=== PATIENT | female | born 2000 | race Caucasian/White ===

== ENCOUNTER 2022-01-25 15:23 | Emergency (ER) | payer OTHER, SELFPAY ==
[2022-01-25 15:24] VITALS: BP 124/77; PULSE 66; RESP 15; TEMP 36.2; O2SAT 95; BMI 24.4
[2022-01-25 15:28] VITALS: BP 124/77; PULSE 66; RESP 15; TEMP 36.2; O2SAT 95
[2022-01-25 15:50] LABS: Hematocrit 38.8 % (37-47); Hemoglobin 13.7 g/dL (12.0-15.0); Mean Corp Hgb Conc 35.3 g/dL (32-36); Mean Corpuscular Hgb 30.9 pg (27.0-32.0); Mean Corpuscular Volume 87.6 fL (81-99); Mean Platelet Vol. 9.9 fl (6.2-12.0); Platelet Count 266 K/mm3 (150-450); RBC Distribution Width CV 11.8 % (11.6-14.6); Red Blood Count 4.43 M/mm3 (4.2-5.4); White Blood Count 7.2 K/mm3 (4.4-11.0)
[2022-01-25 16:14] LABS: Anion Gap 9 (5-15); BUN 17 mg/dL (7-18); BUN/Creat Ratio 19.7 RATIO (10-20); Calcium,Total 9.5 mg/dL (8.5-10.1); Chloride 105 mmol/L (98-107); Creatinine, Serum 0.86 mg/dL (0.55-1.02); EST Glomerular Filtration Rate 86 mL/min (>60); Est Glom Filt Rate - Afr Amer 104 mL/min (>60); Estimated Creatinine Clearance 98.94 ml/min; Glucose 109 mg/dL (74-106); Potassium 3.8 mmol/L (3.5-5.1); Sodium Level 139 mmol/L (136-145)
[2022-01-25 17:17] VITALS: BP 113/76; PULSE 63; RESP 16; O2SAT 98
--- NOTE | 2022-01-25 17:30 | ED.VIS.GI ---
HPI HPI - GI History of Present Illness Chief Complaint: Abd Pain Informant: patient Abdominal Pain/Flank Pain Onset: Today Context: Gradual Onset Timing: Continuous Quality: Sharp and - (Pressure) Location: RUQ and RLQ Worsened by: Nothing Relieved by: Nothing Nausea/Vomiting/Emesis GI Symptom: Positive for Nausea; Negative for Vomiting Diarrhea/Melena/Hematochezia GI Symptom: Negative for Diarrhea, Melena and Hematochezia Associated Symptoms Associated Symptoms: Negative for Dysuria, Frequency and Hematuria LMP: 3 months ago Narrative Narrative: Patient presents with right-sided abdominal pain that began today. Patient states it is gradually gotten worse throughout the day. Patient states the pain is over the right upper and lower quadrants. Patient describes her pain as sharp and pressure. Patient states nothing makes it better nothing makes it worse. Patient admits to nausea but denies any vomiting. Patient denies any diarrhea, melena, or hematochezia. Patient denies any dysuria, hematuria, or frequency. Patient states her last menstrual period was approximately 3 months ago. PFSH PFSH Medical History no medical history Home Medications citalopram 20 mg PO DAILY 01/25/22 [History Last Taken Unknown] hydrocodone-acetaminophen 1 tab PO Q6H PRN PRN 3 Days #10 tablet 01/25/22 [Rx Last Taken Unknown] Allergy/AdvReac Type Severity Reaction Status Date / Time No Known Allergies Allergy Verified 01/25/22 17:09 Surgical History Hx of cholecystectomy Social History Smoking Status: Never smoker ROS ROS ED Constitutional Constitutional ED: Denies chills or fever(s) Eyes Eyes: Denies blurry vision or change in vision ENT ENT ED: Denies rhinorrhea or sore throat Cardiovascular Cardiovascular: Denies chest pain or palpitations Respiratory/Chest Respiratory/Chest: Denies cough or dyspnea Gastrointestinal Gastrointestinal: Reports abdominal pain and nausea; Denies vomiting Genitourinary Genitourinary ED: Denies dysuria or hematuria Musculoskeletal Musculoskeletal: Denies back pain or neck pain Integumentary Denies abscess or rash Neurologic Neurologic: Denies headache(s) or weakness Allergic/Immunologic Allergic/Immunologic ED: Denies mouth swelling or urticaria EXAM Physical Exam Const Vital Signs: 01/25/22 15:24 01/25/22 15:28 01/25/22 17:17 Temperature 97.2 F L 97.2 F L Temperature Source Temporal Temporal Pulse Rate 66 66 63 Respiratory Rate 15 15 16 Blood Pressure 124/77 H 124/77 H 113/76 Blood Pressure Mean 92 92 88 Pulse Ox 95 95 98 Oxygen Delivery Method Room Air Room Air Room Air 01/25/22 19:54 Temperature Temperature Source Pulse Rate 57 L Respiratory Rate 16 Blood Pressure 116/63 Blood Pressure Mean 80 Pulse Ox 99 Oxygen Delivery Method Room Air Positive well nourished and well developed General Appearance ED: well developed HEENT Reports moist mucous membranes Neck supple and no JVD Resp normal respiratory effort and clear to auscultation bilaterally Cardio regular rate, regular rhythm and no murmurs GI normal to inspection, nondistended, normoactive bowel sounds and non-distended Auscultation: normoactive bowel sounds Palpation: soft and tender RLQ and RUQ; Negative for guarding or rebound tenderness present Extremity normal to inspection General Extremety ED: Negative for edema or tenderness General Extremity: Negative for edema Neuro oriented x3, CN's II-XII intact bilaterally and no sensory deficits noted Sensorium / Orientation: alert Motor Exam: strength 5/5 throughout Psych mental status grossly normal Skin no rashes or lesions noted MDM MDM MDM Narrative Medical decision making narrative: CBC was within normal limits. Basic metabolic profile was within normal limits. Hepatic profile was normal. Lipase was normal. Serum hCG was negative. Urinalysis showed leukocyte esterase of 500 but there were 0-5 white blood cells and 0-[address] scan of the abdomen pelvis was obtained. There is a 4.3 mm right distal ureteral calculus as well as a 4 mm right distal ureteral calculus. There is moderate right hydronephrosis and hydroureter. This was interpreted by the radiologist and reviewed by myself. Patient was advised of her findings. Patient was given a prescription for a short course of [place]. Patient was instructed to drink plenty of fluids. Patient was instructed to follow-up with her primary care physician in 3 to 5 days. Patient understood and was agreeable with the plan. All questions were answered. Lab Data Attestation: I reviewed the patient's lab results. Labs: Laboratory Results - last 24 hr 01/25/22 01/25/22 01/25/22 15:30 15:30 15:30 WBC 7.2 RBC 4.43 Hgb 13.7 Hct 38.8 MCV 87.6 MCH 30.9 MCHC 35.3 RDW Std Deviation 38.0 RDW Coeff of [place] 11.8 Plt Count 266 MPV 9.9 Sodium 139 Potassium 3.8 Chloride 105 Carbon Dioxide 25.0 Anion Gap 9 BUN 17 Creatinine 0.86 Estim Creat Clear Calc 98.94 Est GFR (MDRD) Af Amer 104 Est GFR (MDRD) Non-Af 86 BUN/Creatinine Ratio 19.7 Glucose 109 H Calcium 9.5 Total Bilirubin 0.30 Direct Bilirubin 0.06 AST 20 ALT 31 Alkaline Phosphatase 50 Total Protein 7.4 Albumin 3.7 Globulin 3.7 Lipase 162 Serum , Qual Urine Color Urine Clarity Urine pH Ur Specific [place] Urine Protein Urine Glucose (UA) Urine Ketones Urine Occult Blood Urine Nitrite Urine Bilirubin Urine Urobilinogen Ur Leukocyte Esterase Urine RBC Urine WBC Ur Squamous Epith Cells Urine Bacteria Urine Mucus 01/25/22 01/25/22 17:50 17:59 WBC RBC Hgb Hct MCV MCH MCHC RDW Std Deviation RDW Coeff of [place] Plt Count MPV Sodium Potassium Chloride Carbon Dioxide Anion Gap BUN Creatinine Estim Creat Clear Calc Est GFR (MDRD) Af Amer Est GFR (MDRD) Non-Af BUN/Creatinine Ratio Glucose Calcium Total Bilirubin Direct Bilirubin AST ALT Alkaline Phosphatase Total Protein Albumin Globulin Lipase Serum , Qual NEGATIVE Urine Color Yellow Urine Clarity Clear Urine pH 7.0 Ur Specific [place] 1.010 Urine Protein 30 H Urine Glucose (UA) Normal Urine Ketones Negative Urine Occult Blood 150 H Urine Nitrite Negative Urine Bilirubin Negative Urine Urobilinogen Normal Ur Leukocyte Esterase 500 H Urine RBC 0-5 SEEN Urine WBC 0-5 SEEN Ur Squamous Epith Cells 0-5 SEEN Urine Bacteria 0 SEEN Urine Mucus 0 SEEN Radiography Diagnostic Testing: Clinical Impression(s) from Imaging Studies Abdomen/Pelvis CT 01/25/22 17:33 IMPRESSION: Distal right ureteral calculi including at the right UVJ with hydronephrosis and hydroureter. Electronically Signed: Lazaro Mcpherson MD (Brooks) at 19:41 EDT Reading Location ID and State: [facility] / [place] , Service support , Discharge Plan Triage Chief Complaint: Abd Pain ED Provider: Damian Tran Dx/Rx/DC Orders Clinical Impression: Right distal ureteral calculus, Hydroureter on right, Hydronephrosis, right Instructions: ED Kidney Stone w/ Colic Prescriptions: New hydrocodone-acetaminophen [hydrocodone-acetaminophen] 1 TABLET tablet 1 tab PO Q6H PRN PRN (Reason: Pain) 3 Days Qty: 10 RF: 0 No Action citalopram 20 mg Tablet 20 mg PO DAILY RF: 0 Primary Care Provider: Lawrence Choi Referrals: Lawrence Choi DO [Primary Care Provider] - 3-5 Days Disposition Disposition: Home, Self Care
--- NOTE | 2022-01-25 17:33 | CT_ITS ---
STUDY: CT ABDOMEN AND PELVIS WITH CONTRAST REASON FOR EXAM: Female, 21 years old. Right-sided abdominal pain RADIATION DOSAGE (If Supplied By Facility): CTDIvol = ( 11.88 ) mGy, DLP = ( 696.32 ) mGycm TECHNIQUE: Transaxial images were obtained from the dome of the diaphragm to the symphysis pubis without oral contrast. IV 100mL Isovue-300 was administered. Sagittal and coronal images were reconstructed. Individualized dose optimization techniques were used for this CT. COMPARISON: None. FINDINGS: The visualized lung bases are unremarkable. The visualized portions of the heart are within normal limits. Normal liver. There are surgical clips in the gallbladder fossa consistent with a prior cholecystectomy. Normal spleen. Normal pancreas. Normal bilateral adrenal glands. Moderate right hydronephrosis and hydroureter with 2 distal right ureteral calculi measuring up to 4.3 mm on image 96 of series 2, just above the right UVJ. At the right UVJ, there is a 4 mm calculus on image 99 of series 2. Normal left kidney. Normal visualized stomach. Normal small intestine. Normal colon. The appendix is visualized and appears normal. Normal abdominal aorta. Normal inferior vena cava. Normal retroperitoneum. Normal urinary bladder. There is a small umbilical hernia containing fat. Normal osseous structures. CT/Abdomen/Pelvis WITH Contrast IMPRESSION: Distal right ureteral calculi including at the right UVJ with hydronephrosis and hydroureter. Electronically Signed: Lazaro Mcpherson MD ([place]) at 19:41 EDT ,
[2022-01-25] MEDS: 0.9% Normal Saline 1,000 ML 1000 ML IV (18:01)
[2022-01-25 18:03] LABS: Bacteria 0 SEEN /hpf (None Seen); Mucous, Urine 0 SEEN /hpf (<or=2+)
[2022-01-25 18:12] LABS: Color, Urine Yellow (Yellow); Glucose, Dipstick Normal (Normal); Ketone-Dipstick Negative (Negative); Leukocyte Esterase-Dipstick 500 /ul (Negative); Nitrite-Dipstick Negative (Negative); Occult Blood-Urine 150 /ul (Negative); Protein-Dipstick 30 mg/dl (Negative); Urine Bilirubin Dipstick Negative (Negative); Urine Clarity Clear (Clear); Urine Urobilinogen Normal (Normal)
[2022-01-25 18:23] LABS: Red Blood Cells-Urine 0-5 SEEN /hpf (0-5); Squamous Epithelial Cells - UA 0-5 SEEN /hpf (5-10); White Blood Cells 0-5 SEEN /hpf (0-5)
[2022-01-25 18:25] LABS: Internal QC Validated? YES +Cl - CLEAR BKGD; Pregnancy, Serum, hCG Quali. NEGATIVE Negative
[2022-01-25 18:25] LABS: AST(SGOT) 20 U/L (15-37); Alanine Aminotransfer ALT/SGPT 31 U/L (13-56); Albumin, Serum 3.7 g/dL (3.2-5.0); Alkaline Phosphatase 50 U/L (45-117); Bilirubin, Direct 0.06 mg/dL (0.00-0.30); Globulin 3.7 g/dL (2.2-4.2); Lipase 162 U/L (73-393); Protein, Total 7.4 g/dL (6.4-8.2)
[2022-01-25 19:54] VITALS: BP 116/63; PULSE 57; RESP 16; O2SAT 99
== END 2022-01-25 20:50 | disposition home or self-care (01) ==
PROVIDERS: Emergency Provider Emergency Medicine; PCP Family Medicine; Visit Provider Emergency Medicine
DX: N13.2 Hydronephrosis with renal and ureteral calculous obstruction (principal); N13.4 Hydroureter
CPT/HCPCS: 74177; 80048; 80076; 81001; 83690; 84703; 85027; 96360; 99285; J7030; Q9967; A4216

== ENCOUNTER 2025-01-26 19:56 | Emergency (ER) | payer OTHER, SELFPAY ==
[2025-01-26 19:56] VITALS: BP 121/83; PULSE 78; RESP 18; TEMP 36.6; O2SAT 100; BMI 24.9
--- NOTE | 2025-01-26 20:13 | EX.ED.DYSGE1 ---
HPI <ARIE Tony - Last Filed: 01/26/25 21:57> History of Present Illness Chief Complaint: Abd Pain Narrative Narrative: 24-year-old Mormon female who is approximately 16 weeks presents with abdominal pain. 5 days ago she developed pain in the right upper abdomen and side. It initially was mild but persisted throughout the week and worsened this afternoon after she was bending over to get something and stood up. She is able to eat and drink normally. She vomited once earlier this week but none since. No fever or chills. She has been mildly constipated but had a BM this morning. No black or bloody stools. No urinary symptoms. She has an PERIANESTHESIA MANAGER named Dr. Choi in [place] but states she has not yet had an ultrasound. She denies complications with this thus far and denies bleeding. During her last she had placenta previa. Her only abdominal surgical history is cholecystectomy. PFSH <ARIE Tony - Last Filed: 01/26/25 21:57> [facility] Medical History no medical history Home Medications ?Medication ?Instructions ?Recorded ?Last Taken ?Type citalopram 20 mg tablet 20 mg PO DAILY 01/25/22 Unknown History cephalexin 500 mg capsule 500 mg PO TID 5 days #15 caps 01/26/25 Unknown Rx Allergy/AdvReac Type Severity Reaction Status Date / Time No Known Allergies Allergy Verified 01/26/25 19:59 Surgical History Hx of cholecystectomy Social History Smoking Status: Never smoker ROS <ARIE Tony - Last Filed: 01/26/25 21:57> ROS ED ROS Narrative Constitutional: Negative for fever, chills, malaise. CVS: Negative for chest pain. Respiratory: Negative for shortness of breath, cough. GI: Positive for abdominal pain, vomiting. : Negative for dysuria, hematuria or frequency. EXAM <ARIE Tony - Last Filed: 01/26/25 21:57> Physical Exam Narrative Exam Narrative: CONST: Patient sitting in no acute distress. EYES: Normal inspection. ENT: Normal inspection, moist mucous membranes. NECK: Normal inspection. RESP: No respiratory distress, CTAB. CVS: Regular rate and rhythm, no murmur, no gallop. ABD: Soft with mild periumbilical tenderness, no tenderness in the RUQ or RLQ, no guarding or rebound. Back: Normal inspection, no CVA tenderness. SKIN: Color normal, no rash, warm, dry, intact. EXTREMITIES: Normal appearance, no pedal edema. NEURO: Alert and answering questions appropriately. PSYCH: Normal affect. Const Vital Signs: 01/26/25 19:56 01/26/25 21:20 01/26/25 22:02 Temperature 98 F 97.8 F Temperature Source Oral Pulse Rate 78 66 66 Respiratory Rate 18 16 20 H Blood Pressure 121/83 H 130/88 H Blood Pressure Mean 95 102 Pulse Ox 100 100 99 Oxygen Delivery Method Room Air Room Air <Dr. Myke Parker DO - Last Filed: 01/27/25 00:23> Physical Exam Const Vital Signs: 01/26/25 19:56 01/26/25 21:20 01/26/25 22:02 Temperature 98 F 97.8 F Temperature Source Oral Pulse Rate 78 66 66 Respiratory Rate 18 16 20 H Blood Pressure 121/83 H 130/88 H Blood Pressure Mean 95 102 Pulse Ox 100 100 99 Oxygen Delivery Method Room Air Room Air MDM <ARIE Tony - Last Filed: 01/26/25 21:57> [facility] Narrative Medical decision making narrative: History gathered from: Patient and spouse Differential includes but not limited to appendicitis, UTI, round ligament pain 24-year-old female is approximately 16 weeks presenting with 5 days of right upper abdominal pain. Pain was worse after bending over and standing up today prompting her visit. She has a history of cholecystectomy. She appears well nontoxic and is afebrile and hemodynamically stable. Normal cardiopulmonary exam. Abdomen is soft with mild periumbilical tenderness but no reproducible tenderness in the RUQ or RLQ. No peritoneal signs. heart tones are 150 and the attending did a bedside ultrasound which confirmed IUP as well. CBC and BMP are normal. UA is consistent with asymptomatic bacteriuria and was sent for culture and she will be treated with Keflex. She was also given IV fluids since urinalysis had ketones. Patient's abdominal pain is mild and she declined analgesia here. I do not suspect appendicitis based on her history of pain with bending over, no fever or systemic symptoms, and no leukocytosis. I recommended close follow-up with her PERIANESTHESIA MANAGER and discussed she should return if symptoms worsen. She was discharged in stable condition. Lab Data Attestation: I reviewed the patient's lab results. Labs: Laboratory Results - last 24 hr 01/26/25 20:28 WBC 6.8 RBC 4.27 Hgb 12.9 Hct 36.8 L MCV 86.2 MCH 30.2 MCHC 35.1 RDW Std Deviation 41.0 RDW Coeff of [place] 13.2 Plt Count 243 MPV 9.6 Immature Gran % (Auto) 0.300 Neut % (Auto) 63.0 Lymph % (Auto) 28.5 Carbon % (Auto) 7.2 Eos % (Auto) 0.7 Baso % (Auto) 0.3 Absolute Neuts (auto) 4.3 Absolute Lymphs (auto) 1.93 Nucleated RBC % 0 Sodium 135 Potassium 3.5 Chloride 103 Carbon Dioxide 22.1 Anion Gap 10 BUN 7 Creatinine 0.47 L Estim Creat Clear Calc 176.39 Est GFR (MDRD) Non-Af 135 BUN/Creatinine Ratio 15.9 Glucose 67 L Calcium 9.1 Total Bilirubin 0.35 AST 30 ALT 30 Alkaline Phosphatase 49 Total Protein 6.5 Albumin 3.5 Globulin 3.1 Albumin/Globulin Ratio 1.1 Lipase 34 Urine Color Yellow Urine Clarity Clear Urine pH 6.5 Ur Specific [place] 1.020 Urine Protein 15 H Urine Glucose (UA) Normal Urine Ketones 150 A* Urine Occult Blood 25 H Urine Nitrite Negative Urine Bilirubin Negative Urine Urobilinogen 1 H Ur Leukocyte Esterase Negative Urine RBC 0 SEEN Urine WBC 0 SEEN Ur Squamous Epith Cells 0-5 SEEN Urine Bacteria 2+ Urine Mucus 0 SEEN <Dr. Myke Parker, DO - Last Filed: 01/27/25 00:23> [facility] MDM Narrative Medical decision making narrative: History gathered from: Patient and spouse Differential includes but not limited to appendicitis, UTI, round ligament pain 24-year-old female is approximately 16 weeks presenting with 5 days of right upper abdominal pain. Pain was worse after bending over and standing up today prompting her visit. She has a history of cholecystectomy. She appears well nontoxic and is afebrile and hemodynamically stable. Normal cardiopulmonary exam. Abdomen is soft with mild periumbilical tenderness but no reproducible tenderness in the RUQ or RLQ. No peritoneal signs. heart tones are 150 and the attending did a bedside ultrasound which confirmed IUP as well. CBC and BMP are normal. UA is consistent with asymptomatic bacteriuria and was sent for culture and she will be treated with Keflex. She was also given IV fluids since urinalysis had ketones. Patient's abdominal pain is mild and she declined analgesia here. I do not suspect appendicitis based on her history of pain with bending over, no fever or systemic symptoms, and no leukocytosis. I recommended close follow-up with her PERIANESTHESIA MANAGER and discussed she should return if symptoms worsen. She was discharged in stable condition. Attending note: I have personally performed a face to face assessment of the patient and have reviewed the PÉREZ note. I personally made/approved the management plan and take responsibility for the patient management. I performed a substantive portion of the visit including all aspects of the following. My miranda findings include: G4, P3 16 gestation by dates presents pain right side abdomen -5 days. Symptoms started with standing. Symptoms worse with movement. No vomiting no diarrhea no fevers. Cholecystectomy in the past. Exam pleasant abdomen abdomen negative Owens's or McBurney's tenderness. Bedside ultrasound intrauterine heart tone 144. Abdominal labs ordered normal urine with slight ketones and 2+ bacteria. Culture sent still antibiotic she was given IV fluids. No clinical appendicitis on exam. Discussed monitoring symptoms discussed return precautions. All questions were answered. Lab Data Labs: Laboratory Results - last 24 hr 01/26/25 20:28 WBC 6.8 RBC 4.27 Hgb 12.9 Hct 36.8 L MCV 86.2 MCH 30.2 MCHC 35.1 RDW Std Deviation 41.0 RDW Coeff of [place] 13.2 Plt Count 243 MPV 9.6 Immature Gran % (Auto) 0.300 Neut % (Auto) 63.0 Lymph % (Auto) 28.5 Carbon % (Auto) 7.2 Eos % (Auto) 0.7 Baso % (Auto) 0.3 Absolute Neuts (auto) 4.3 Absolute Lymphs (auto) 1.93 Nucleated RBC % 0 Sodium 135 Potassium 3.5 Chloride 103 Carbon Dioxide 22.1 Anion Gap 10 BUN 7 Creatinine 0.47 L Estim Creat Clear Calc 176.39 Est GFR (MDRD) Non-Af 135 BUN/Creatinine Ratio 15.9 Glucose 67 L Calcium 9.1 Total Bilirubin 0.35 AST 30 ALT 30 Alkaline Phosphatase 49 Total Protein 6.5 Albumin 3.5 Globulin 3.1 Albumin/Globulin Ratio 1.1 Lipase 34 Urine Color Yellow Urine Clarity Clear Urine pH 6.5 Ur Specific [place] 1.020 Urine Protein 15 H Urine Glucose (UA) Normal Urine Ketones 150 A* Urine Occult Blood 25 H Urine Nitrite Negative Urine Bilirubin Negative Urine Urobilinogen 1 H Ur Leukocyte Esterase Negative Urine RBC 0 SEEN Urine WBC 0 SEEN Ur Squamous Epith Cells 0-5 SEEN Urine Bacteria 2+ Urine Mucus 0 SEEN Discharge Plan Triage Chief Complaint: Abd Pain ED Midlevel Provider: France Walters ED Provider: Myke Parker Dx/Rx/DC Orders Clinical Impression: Abdominal pain during , Asymptomatic bacteriuria Instructions: Abdominal Pain Prescriptions: New cephalexin 500 mg capsule 500 mg PO TID 5 Days Qty: 15 0RF No Action citalopram 20 mg Tablet 20 mg PO DAILY Primary Care Provider: Lawrence Choi Referrals: Lawrence Choi DO [Primary Care Provider] - Activity Restrictions/Additional Instructions: Your blood tests are normal. Your urine has bacteria so I prescribed antibiotics. Call your PERIANESTHESIA MANAGER for a follow-up appointment. If your pain worsens or you develop a fever or new symptoms come back to the ER. Print Language: Greenlandic Disposition Disposition: Home, Self Care Discharge Date/Time: 01/26/25 22:16
[2025-01-26 20:34] LABS: Mucous, Urine 0 SEEN /hpf (<or=2+); Red Blood Cells-Urine 0 SEEN /hpf (0-5); White Blood Cells 0 SEEN /hpf (0-5)
[2025-01-26 20:42] LABS: Absolute Lymphocyte Count 1.93 X10^3/uL (0.83-4.51); Absolute Neutrophil Count 4.3 X10^3/uL (2.0-7.7); Basophil# 0.02 X10^3/uL; Basophil% 0.3 % (0-1); Eosinophil# 0.05 X10^3/uL; Eosinophils% 0.7 % (0-5); Hematocrit 36.8 % (37-47); Hemoglobin 12.9 g/dL (12.0-15.0); Lymphocyte # 1.93 X10^3/ul (0.83-4.51); Lymphocyte % 28.5 % (19-41); Mean Corp Hgb Conc 35.1 g/dL (32-36); Mean Corpuscular Hgb 30.2 pg (27.0-32.0); Mean Corpuscular Volume 86.2 fL (81-99); Mean Platelet Vol. 9.6 fl (6.2-12.0); Monocyte# 0.49 X10^3/uL; Monocyte% 7.2 % (0-10); NRBC Flagged by Analyzer 0 % (0-5); Neutrophil # 4.27 X10^3/uL (2.7-7.7); Platelet Count 243 K/mm3 (150-450); RBC Distribution Width CV 13.2 % (11.6-14.6); Red Blood Count 4.27 M/mm3 (4.2-5.4); White Blood Count 6.8 K/mm3 (4.4-11.0)
[2025-01-26 20:55] LABS: Color, Urine Yellow (Yellow); Glucose, Dipstick Normal (Normal); Ketone-Dipstick 150 mg/dl (Negative); Leukocyte Esterase-Dipstick Negative /ul (Negative); Nitrite-Dipstick Negative (Negative); Occult Blood-Urine 25 /ul (Negative); Protein-Dipstick 15 mg/dl (Negative); Urine Bilirubin Dipstick Negative (Negative); Urine Clarity Clear (Clear); Urine Urobilinogen 1 mg/dl (Normal); Urine pH 6.5 (5.0 - 8.0)
[2025-01-26 20:56] LABS: ALB/GLOB Ratio 1.1 RATIO (0.9-2.4); AST(SGOT) 30 U/L (<=31); Alanine Aminotransfer ALT/SGPT 30 U/L (<=34); Albumin, Serum 3.5 g/dL (3.5-5.0); Alkaline Phosphatase 49 U/L (35-104); Anion Gap 10 (5-15); BUN 7 mg/dL (4-19); BUN/Creat Ratio 15.9 RATIO (10-20); Calcium,Total 9.1 mg/dL (7.6-11.0); Carbon Dioxide 22.1 mmol/L (21.0-32.0); Chloride 103 mmol/L (98-108); Creatinine, Serum 0.47 mg/dL (0.70-1.20); EST Glomerular Filtration Rate 135 (>60); Estimated Creatinine Clearance 176.39 ml/min (50-250); Globulin 3.1 g/dL (2.2-4.2); Glucose 67 mg/dL (70-99); Lipase 34 U/L (13-75); Potassium 3.5 mmol/L (3.3-5.1); Protein, Total 6.5 g/dL (5.9-8.4); Sodium Level 135 mmol/L (133-145); Total Bilirubin 0.35 mg/dL (0.00-1.30)
[2025-01-26] MEDS: 0.9% Normal Saline (1000mL) 1,000 ML 999 ML IV (21:19)
[2025-01-26 21:20] VITALS: PULSE 66; RESP 16; O2SAT 100
[2025-01-26 21:31] LABS: Bacteria 2+ /hpf (None Seen); Squamous Epithelial Cells - UA 0-5 SEEN /hpf (5-10)
[2025-01-26 22:02] VITALS: BP 130/88; PULSE 66; RESP 20; TEMP 36.6; O2SAT 99
== END 2025-01-26 22:16 | disposition home or self-care (01) ==
PROVIDERS: Physician Assistant; Emergency Provider Emergency Medicine; PCP Family Medicine; Visit Provider Emergency Medicine
DX: O99.891 Other specified diseases and conditions complicating pregnancy (principal); R82.71 Bacteriuria; R10.11 Right upper quadrant pain; Z3A.16 16 weeks gestation of pregnancy; Z90.49 Acquired absence of other specified parts of digestive tract
CPT/HCPCS: 80053; 81001; 83690; 85025; 87086; 87088; 96360; 99283; A4216